=== PATIENT | female | born 1940 | race Caucasian/White ===

== ENCOUNTER 2017-08-04 22:47 | Inpatient (IN) | payer OTHER ==
[~2017-08-04] VITALS: Ht 157.5 cm; Wt 58.8 kg
--- NOTE | ~2017-08-04 | 2DMMODE ---
[facility] [address] [place] [address] 2 D/M-MODE ECHOCARDIOGRAM Name: FABIEN VENEGAS Room #: 218-P [facility] IN ..#: [id number] Admission: 08/05/17 Attend Phys: Farrukh Brady, Discharge: Date of : 42 Date of Service: 08/05/17 1157 Report #: [id number] THIS REPORT FOR: //name// APPROVED REPORT Study performed: 08/05/2017 08:34:30 EXAM: Comprehensive 2D, Doppler, and color-flow Echocardiogram Patient Location: Bedside Room #: 218 Status: routine BSA: 1.53 HR: 88 bpm BP: 148/97 mmHg Other Information Study Quality: Adequate Indications COPD Dyspnea 2D Dimensions RVDd: 37.59 mm LVEF(%): 53.58 (>50%) IVSd: 10.23 (7-11mm) LVOT Diam: 20.59 (18-24mm) LVDd: 42.63 mm PWd: 10.92 (7-11mm) Ascending Ao: 30.75 (22-36mm) LVDs: 30.95 (25-40mm) Aortic Root: 31.16 mm IVC: 23.00 mm Shi's LVEF: 53.58 % Volumes Left Atrial Volume (Systole) Single Plane 4CH: 42.76 mL Single Plane 2CH: 25.39 mL LA ESV Index: 23.00 mL/m2 Aortic Valve AoV Peak Bao.: 1.40 m/s AO Peak Gr.: 7.87 mmHg LVOT Max P.61 mmHg LVOT Max V: 1.18 m/s DIVINA Vmax: 2.81 cm2 Mitral Valve E/A Ratio: 0.7 MV Decel. Time: 183.60 ms [facility] [place] [address] 2 D/M-MODE ECHOCARDIOGRAM Name: FABIEN VENEGAS Room #: 218-P [facility] IN .R.#: [id number] Admission: 08/05/17 Attend Phys: Farrukh Brady, Discharge: Date of : 42 Date of Service: 08/05/17 1157 Report #: [id number] E Max Bao.: 0.87 m/s MV A Bao.: 1.24 m/s MV PHT: 53.25 ms IVRT: 110.73 ms Pulmonary Valve PV Peak Bao.: 1.34 m/s PV Peak Gr.: 7.18 mmHg Pulmonary Vein P Vein S: 0.60 m/s P Vein A: 0.31 m/s P Vein D: 0.43 m/s P Vein A Dur.: 69.2 msec P Vein S/D Ratio: 1.40 Tricuspid Valve TR Peak Bao.: 3.16 m/s RAP Estimate: 15.00 mmHg TR Peak Gr.: 40.04 mmHg PA Pressure: 55.00 mmHg Left Ventricle The left ventricle is normal size. There is normal LV segmental wall motion. There is normal left ventricular wall thickness. The left ventricular systolic function is normal. The left ventricular ejection fraction is within the normal range. LVEF is 55-60%. Mild diastolic dysfunction is present (impaired relaxation pattern). Right Ventricle The right ventricle is normal size. The right ventricular systolic function is normal. Atria The left atrium size is normal. The right atrium size is normal. Aortic Valve The aortic valve is mildly sclerotic No aortic regurgitation is present. There is no aortic valvular stenosis. Mitral Valve The mitral valve is normal in structure. Trace mitral regurgitation. No evidence of mitral valve stenosis. Tricuspid Valve The tricuspid valve is normal in structure. Trace to mild tricuspid regurgitation. PAP is estimated at 50-55 mmHg. [facility] [address] [place] [address] 2 D/M-MODE ECHOCARDIOGRAM Name: FABIEN VENEGAS Room #: 218-P ADM IN .R.#: [id number] Admission: 08/05/17 Attend Phys: Farrukh Brady, Discharge: Date of : 42 Date of Service: 08/05/17 1157 Report #: [id number] Pulmonic Valve The pulmonary valve is normal in structure. There is no pulmonic valvular regurgitation. Great Vessels The aortic root is normal in size. IVC is dilated in size and collapses <50% with patient currently on BiPap machine. Pericardium There is no pericardial effusion. <Conclusion> The left ventricular systolic function is normal. There is normal LV segmental wall motion. LVEF is 55-60%. Mild diastolic dysfunction The aortic valve is mildly sclerotic. No aortic regurgitation or stenosis The mitral valve is normal in structure. Trace mitral regurgitation. Trace to mild tricuspid regurgitation. Pulmonary artery pressure estimated at 50-55 mmHg. There is no pericardial effusion. <ELECTRONICALLY SIGNED> By: Christo King MD, FACC 08/05/17 1157 1157 1157 Christo King MD, FACC /INF
--- NOTE | ~2017-08-04 | EKG ---
[place] [address] [address] [facility] [place] [address] ELECTROCARDIOGRAM REPORT Name: THEOFABIEN Verduzco Room #: 218-P [facility] IN M.R.#: [id number] Admission: 08/05/17 Attend Phys: Farrukh Brady MD Discharge: Date of : 42 Report #: [id number] THIS REPORT FOR: //name// [facility] ED Test Date: 2017-08-05 Test Time: 01:14:38 Pat Name: FABIEN VENEGAS Department: Room: Gender: F Supervisor [employer]: : 1940 Requested By: Yonatan Liu Order Number: [id number] MD: Christo King Measurements Intervals [place] Rate: 94 P: 70 [place]: 158 QRS: 68 QRSD: 87 T: 49 QT: 317 QTc: 397 Interpretive Statements Sinus rhythm Ventricular premature complex Poor R wave progression Compared to ECG 08/02/2017 09:49:31 Ventricular premature complex(es) now present Electronically Signed On 08-06-2017 10:07:04 CDT by Christo King [email or web address] <ELECTRONICALLY SIGNED> By: Christo King MD, [facility] 08/06/17 1007 0114 0114 Christo King MD, [facility] /EPI
[~2017-08-04 22:47] MED LIST: ALBUTEROL2.5 MG/0.5 IH; AMOXICILLIN 50500 MG PO; ASPIRIN325 PO; AZITHROMYCIN 2250 MG PO; BACTRIM DS TAB1 EACH PO; CVS FISH OIL 11 EAC3; DOXYCYCLINE 10100 MG PO; DUONEB 2.5-0.5 M3 ML; KEFLEX500 MG PO; MEDROLDOSEPACK PO; MUCINEX600 MG; PREDNISONE 10 M10 MG PO; PREDNISONE 5 MG5 M1 PO; PROTONIX40 M1 PO; TRAVATAN Z2.5 ML OPHTHALMIC; ULTRAM 50MG TAB50 MG PO; VENTOLIN HFA 1818 GM INH; VICOPROFEN 2001 EACH PO
[2017-08-04 22:48] VITALS: BP 171/88
[2017-08-05] VITALS (7 sets, daily range): BP systolic 135–169; BP diastolic 72–106
[2017-08-05 01:32] LABS: HEMATOCRIT 31.7 % (37.0-47.0); HEMOGLOBIN 10.9 gm/dL (12.0-15.0); MCH 31.9 pg (26.0-34.0); MCHC 34.4 g/dL (28.0-37.0); MCV 92.8 fL (80.0-100.0); PLATELET COUNT 407 thou/uL (150-400); RBC 3.42 mil/uL (4.20-5.00); RDW 12.8 % (10.5-14.5); WBC 8.2 thou/uL (4.0-11.0)
[2017-08-05 01:40] LABS: ANION GAP < 0 mmol/L (7-16); BUN 9 mg/dL (7-18); CALCIUM 8.9 mg/dL (8.5-10.1); CHLORIDE 91 mmol/L (98-107); CO2 43 mmol/L (21-32); CREATININE 0.4 mg/dL (0.6-1.0); GLUCOSE 122 mg/dL (74-106); SODIUM 128 mmol/L (136-145)
[2017-08-05 01:41] LABS: POTASSIUM 3.8 mmol/L (3.5-5.1)
[2017-08-05 01:57] LABS: TROPONIN-I < 0.04 ng/mL (<0.06)
[2017-08-05 02:22] LABS: BE(vivo) 9.9 mmol/L (-2 to +3); HCO3 39.9 mmol/L (22.0-26.0); sO2 95.4 % (92.0-98.0)
[2017-08-05 02:23] LABS: PCO2 90.6 mmHg (35.0-45.0); pH 7.262 (7.360-7.450)
[2017-08-05 08:29] LABS: BE(vivo) 11.4 mmol/L (-2 to +3); HCO3 40.1 mmol/L (22.0-26.0); PO2 103.3 mmHg (80.0-100.0); sO2 97.1 % (92.0-98.0)
[2017-08-05 08:31] LABS: PCO2 78.1 mmHg (35.0-45.0); pH 7.328 (7.360-7.450)
[2017-08-06 03:36] VITALS: BP 171/95
[2017-08-06 08:21] VITALS: BP 164/88
[2017-08-06 16:57] VITALS: BP 160/90
[2017-08-06 19:14] VITALS: BP 149/85
[2017-08-07 02:57] VITALS: BP 142/70
[2017-08-07 07:01] VITALS: BP 144/71
[2017-08-07 11:17] VITALS: BP 141/79
[2017-08-07 15:01] VITALS: BP 132/87
[2017-08-07 20:04] VITALS: BP 137/72
[2017-08-08 07:35] VITALS: BP 152/82
[2017-08-08 19:46] VITALS: BP 113/64
[2017-08-09 08:08] VITALS: BP 143/63
[2017-08-09 09:39] LABS: CALCIUM 9.2 mg/dL (8.5-10.1); CREATININE 0.6 mg/dL (0.6-1.0); POTASSIUM 4.4 mmol/L (3.5-5.1)
[2017-08-09 20:00] VITALS: BP 122/54
[2017-08-10 07:15] VITALS: BP 130/67
[2017-08-10] MEDS ORDERED: LEVAQUIN 500 M500 M1 PO (08:36)
[2017-08-10] MEDS ORDERED: DALMANE15 MG PO (08:36)
[2017-08-10] MEDS ORDERED: PULMICORT0.5 MG/21 INH (08:36)
[2017-08-10] MEDS ORDERED: PREDNISONE 10 M10 MG PO (08:37)
== END 2017-08-10 13:15 | DRG 189 ==
LOC: ER 22:47 → SICU 08-05 01:10 → 2N 08-05 01:10 → EROBS 08-05 01:10 → 4W 08-05 01:33 → 2N 08-05 04:12 → SICU 08-07 17:56
PROVIDERS: Emergency Medicine; Hospitalist; Nurse Practitioner Acute Care
PROC: 5A09357 Assistance with Respiratory Ventilation, Less than 24 Consecutive Hours, Continuous Positive Airway Pressure (ICD-10-PCS; principal; 2017-08-05)
PROC: 5A09357 Assistance with Respiratory Ventilation, Less than 24 Consecutive Hours, Continuous Positive Airway Pressure (ICD-10-PCS; 2017-08-08)
PROC: 5A09357 Assistance with Respiratory Ventilation, Less than 24 Consecutive Hours, Continuous Positive Airway Pressure (ICD-10-PCS; 2017-08-09)
DX: J96.21 Acute and chronic respiratory failure with hypoxia (principal); J44.1 Chronic obstructive pulmonary disease with (acute) exacerbation; E87.1 Hypo-osmolality and hyponatremia; R26.81 Unsteadiness on feet; J96.22 Acute and chronic respiratory failure with hypercapnia; F41.9 Anxiety disorder, unspecified; I27.20 Pulmonary hypertension, unspecified; K44.9 Diaphragmatic hernia without obstruction or gangrene; Z60.2 Problems related to living alone; R91.1 Solitary pulmonary nodule; Z90.49 Acquired absence of other specified parts of digestive tract; Z88.8 Allergy status to other drugs, medicaments and biological substances; Z87.891 Personal history of nicotine dependence; Z88.2 Allergy status to sulfonamides; Z79.899 Other long term (current) drug therapy; Z90.721 Acquired absence of ovaries, unilateral; Z99.81 Dependence on supplemental oxygen
CPT/HCPCS: 10194; 15002

== ENCOUNTER → 2017-09-01 | Outpatient (CLI) | payer OTHER ==
[~2017-09-01] VITALS: Ht 157.5 cm; Wt 53.8 kg
[~2017-09-01] MED LIST changes: +ALLER-CHLOR4 MG; +DALMANE15 MG PO; +LEVAQUIN 500 M500 M1 PO; +PULMICORT0.5 MG/21 INH; +VENTOLIN HFA 1818 GM
[2017-09-01 13:00] VITALS: BP 100/52
== END ==
LOC: SEN 08:13
DX: J44.1 Chronic obstructive pulmonary disease with (acute) exacerbation (principal); I27.20 Pulmonary hypertension, unspecified; Z87.891 Personal history of nicotine dependence

== ENCOUNTER → 2017-12-11 | Outpatient (CLI) | payer OTHER ==
[~2017-12-11] MED LIST changes: +ALLER-CHLOR4 MG PO; +CLEOCIN HCL150 MG PO; +DOXYCYCLINE 10100 M1 PO; +LASIX 20 MG TAB20 MG PO; +LASIX 40 MG TAB40 M1 PO; +PANTOPRAZOLE SO40 M1 PO; +PREDNISONE 20 M20 MG PO; +VITAMIN D1000 UNI1 PO; +XANAX 0.5 MG0.5 M1 PO
[2017-12-11 13:22] VITALS: BP 110/58
== END ==
LOC: SEN 09:03
DX: Z09 Encounter for follow-up examination after completed treatment for conditions other than malignant neoplasm (principal); J44.9 Chronic obstructive pulmonary disease, unspecified; R60.0 Localized edema

== ENCOUNTER 2017-12-15 16:50 | Emergency (ER) | payer OTHER ==
[~2017-12-15] VITALS: Ht 154.9 cm; Wt 56.7 kg
[~2017-12-15 16:50] MED LIST changes: -ALLER-CHLOR4 MG PO; -CLEOCIN HCL150 MG PO; -LASIX 40 MG TAB40 M1 PO; -PANTOPRAZOLE SO40 M1 PO; -VITAMIN D1000 UNI1 PO; -XANAX 0.5 MG0.5 M1 PO
[2017-12-15] MEDS ORDERED: VITAMIN D1000 UNI1 PO (17:08)
[2017-12-15] MEDS ORDERED: ALLER-CHLOR4 MG PO (17:11)
[2017-12-15 17:42] LABS: HEMATOCRIT 29.4 % (37.0-47.0); HEMOGLOBIN 9.8 gm/dL (12.0-15.0); MCH 30.1 pg (26.0-34.0); MCHC 33.4 g/dL (28.0-37.0); MCV 90.2 fL (80.0-100.0); PLATELET COUNT 329 thou/uL (150-400); RBC 3.26 mil/uL (4.20-5.00); RDW 14.1 % (10.5-14.5); WBC 8.7 thou/uL (4.0-11.0)
[2017-12-15 17:49] LABS: ANION GAP < 0 mmol/L (7-16); BUN 10 mg/dL (7-18); CALCIUM 9.2 mg/dL (8.5-10.1); CHLORIDE 92 mmol/L (98-107); CO2 43 mmol/L (21-32); CREATININE 0.4 mg/dL (0.6-1.0); GLUCOSE 85 mg/dL (74-106); POTASSIUM 4.3 mmol/L (3.5-5.1); SODIUM 130 mmol/L (136-145)
[2017-12-15 17:56] LABS: ALBUMIN 2.7 g/dL (3.4-5.0); SGOT 29 U/L (15-37); SGPT 41 U/L (30-65); TOTAL BILIRUBIN 0.3 mg/dL (<0.1-1.0); TOTAL PROTEIN 6.4 g/dL (6.4-8.2)
[2017-12-15 18:09] LABS: ABSOLUTE NEUTROPHILS 7.2 thou/uL (1.4-8.2)
[2017-12-15] MEDS ORDERED: CLEOCIN HCL150 MG PO (18:09)
[2017-12-15 20:11] VITALS: BP 115/50
== END 2017-12-16 04:45 | disposition home or self-care (01) ==
LOC: ER 16:50
PROVIDERS: Emergency Medicine
DX: L03.116 Cellulitis of left lower limb (principal); J44.9 Chronic obstructive pulmonary disease, unspecified; I10 Essential (primary) hypertension; Z87.891 Personal history of nicotine dependence; Z88.1 Allergy status to other antibiotic agents; Z88.2 Allergy status to sulfonamides; Z90.49 Acquired absence of other specified parts of digestive tract; Z90.721 Acquired absence of ovaries, unilateral

== ENCOUNTER 2017-12-20 09:04 | Inpatient (IN) | payer OTHER ==
--- NOTE | ~2017-12-20 | HC ---
[facility] [place] [address] [place] [address] CONSULTATION Name: FABIEN VENEGAS Room #: 459-P [facility] IN M.R.#: [id number] Admission: 12/20/17 Attend Phys: Glendy Painter MD Discharge: Date of : 42 Report #: [id number] THIS REPORT FOR: //name// [facility]: [facility] DATE OF SERVICE: 12/20/2017 HISTORY OF PRESENT ILLNESS: A 77-year-old white woman [facility] with failure to improve of skin lesions on lower extremities despite treatment with doxycycline and recent clindamycin. The patient is advised admission. No systemic symptoms. PAST MEDICAL HISTORY: COPD requiring supplemental oxygen. History of hyponatremia. Fluid overload. Stasis dermatitis, cellulitis legs. DRUG ALLERGIES: CEPHALEXIN, SULFA. MEDICATIONS: The patient is currently on treatment with furosemide 20 mg p.o. daily, guaifenesin 600 p.o. b.i.d., Atrovent and albuterol inhalation treatment, enoxaparin 40 mg subQ daily, meropenem 500 IV every 8 hours, p.r.n. acetaminophen, zolpidem tartrate, ondansetron. SOCIAL HISTORY: See H and P, old records. FAMILY HISTORY: See H and P, old records. REVIEW OF SYSTEMS: Red lesions legs failed to improve on an outpatient basis. COPD requiring inhalation treatments and steroids in the past on supplemental oxygen. PHYSICAL EXAMINATION: GENERAL: Chronically ill-appearing woman. VITAL SIGNS: Temperature 98.9, pulse 86, respirations 18, BP 136/61. HEENMT: Upper and lower plates. NECK: Supple. LUNGS: Decreased breath sounds. HEART: S1, S2. No gallop or murmur. ABDOMEN: Soft, no masses or megaly. EXTREMITIES: Reveal erythematous plaques on both legs, pretibial area slightly tender on palpation. NEUROLOGIC: Grossly within normal limits. LABORATORY DATA: Sodium 130, potassium 4.4, CO2 44, BUN 7, creatinine 0.4, glucose 119, albumin 2.7 g/dL. WBC 6400, hemoglobin 10.3 g/dL, platelets [address] [address] CONSULTATION Name: FABIEN VENEGAS Room #: 459-P [facility] IN [facility].#: [id number] Admission: 12/20/17 Attend Phys: Glendy Painter MD Discharge: Date of : 42 Report #: [id number]. RADIOLOGY EVALUATION: Chest x-ray done on 12/04/2017 revealed bilateral pleural effusion, bibasilar atelectasis, COPD changes. ASSESSMENT: 1. Cellulitis, lower extremities, superimposed on stasis dermatitis. 2. Pretibial edema. 3. Malnutrition. 4. Severe chronic obstructive pulmonary disease. 5. Anemia of chronic disease. SUGGESTIONS: Recommend intravenous meropenem 500 IV every 8 hours and possibly topical steroids to skin lesions on legs. Dr. Painter, thank you for requesting my suggestions. <ELECTRONICALLY SIGNED> By: Naseem Perez MD 12/22/17 1226 1327 0225 Naseem Perez MD /nt
[~2017-12-20 09:04] MED LIST changes: +ALLER-CHLOR4 MG PO; +CLEOCIN HCL150 MG PO; +VITAMIN D1000 UNI1 PO
[2017-12-20 11:07] VITALS: BP 140/68
[2017-12-20] MEDS ORDERED: LASIX 20 MG TAB20 MG PO (11:33)
[2017-12-20 12:50] VITALS: BP 126/63
[2017-12-20 13:12] LABS: HEMATOCRIT 31.5 % (37.0-47.0); HEMOGLOBIN 10.3 gm/dL (12.0-15.0); MCH 29.3 pg (26.0-34.0); MCHC 32.8 g/dL (28.0-37.0); MCV 89.4 fL (80.0-100.0); RBC 3.52 mil/uL (4.20-5.00); RDW 14.2 % (10.5-14.5); WBC 6.4 thou/uL (4.0-11.0)
[2017-12-20 13:22] LABS: ANION GAP < 0 mmol/L (7-16); BUN 7 mg/dL (7-18); CHLORIDE 90 mmol/L (98-107); CO2 44 mmol/L (21-32); CREATININE 0.4 mg/dL (0.6-1.0); GLUCOSE 119 mg/dL (74-106); POTASSIUM 4.4 mmol/L (3.5-5.1); SODIUM 130 mmol/L (136-145)
[2017-12-20 13:28] LABS: ALBUMIN 2.7 g/dL (3.4-5.0); SGOT 21 U/L (15-37); SGPT 33 U/L (30-65); TOTAL BILIRUBIN 0.3 mg/dL (<0.1-1.0); TOTAL PROTEIN 6.4 g/dL (6.4-8.2)
[2017-12-21 01:50] LABS: URINE BILIRUBIN NEGATIVE (Negative); URINE BLOOD TRACE (Negative); URINE CLARITY CLEAR; URINE COLOR YELLOW; URINE GLUCOSE-RANDOM* NEGATIVE (Negative); URINE KETONES NEGATIVE (Negative); URINE LEUKOCYTES NEGATIVE (Negative); URINE NITRITE NEGATIVE (Negative); URINE PROTEIN (DIPSTICK) NEGATIVE (Negative); URINE SPECIFIC GRAVITY <= 1.005 (1.005-1.035); URINE UROBILINOGEN 0.2 E.U./dl (0.2-1.0)
[2017-12-21 04:16] LABS: HEMATOCRIT 28.2 % (37.0-47.0); HEMOGLOBIN 9.4 gm/dL (12.0-15.0); MCHC 33.3 g/dL (28.0-37.0); MCV 90.1 fL (80.0-100.0); PLATELET COUNT 415 thou/uL (150-400); RBC 3.12 mil/uL (4.20-5.00); RDW 14.5 % (10.5-14.5); WBC 5.3 thou/uL (4.0-11.0)
[2017-12-21 04:29] LABS: ANION GAP < 0 mmol/L (7-16); BUN 6 mg/dL (7-18); CALCIUM 8.6 mg/dL (8.5-10.1); CHLORIDE 94 mmol/L (98-107); CO2 40 mmol/L (21-32); CREATININE 0.6 mg/dL (0.6-1.0); GLUCOSE 194 mg/dL (74-106); POTASSIUM 4.2 mmol/L (3.5-5.1); SODIUM 133 mmol/L (136-145)
[2017-12-21 04:56] LABS: ABSOLUTE NEUTROPHILS 4.2 thou/uL (1.4-8.2)
[2017-12-21 08:00] VITALS: BP 116/51
[2017-12-21 20:11] VITALS: BP 120/63
[2017-12-22 07:28] VITALS: BP 124/68
[2017-12-22 19:32] VITALS: BP 121/76
[2017-12-23 07:54] VITALS: BP 115/71
[2017-12-23 19:42] VITALS: BP 110/44
[2017-12-24 08:01] VITALS: BP 122/63
[2017-12-24 12:29] LABS: BE(vivo) 14.2 mmol/L (-2 to +3); HCO3 42.1 mmol/L (22.0-26.0); PCO2 74.8 mmHg (35.0-45.0); PO2 81.2 mmHg (80.0-100.0); pH 7.368 (7.360-7.450); sO2 95.1 % (92.0-98.0)
[2017-12-24 19:15] VITALS: BP 128/45
[2017-12-25 06:16] VITALS: BP 126/61
[2017-12-25 08:43] VITALS: BP 125/65
[2017-12-25 19:09] VITALS: BP 117/65
[2017-12-26 07:40] VITALS: BP 113/69
[2017-12-26 16:25] VITALS: BP 115/68
[2017-12-26 19:26] VITALS: BP 106/54
[2017-12-27 08:07] VITALS: BP 110/60
[2017-12-27] MEDS ORDERED: XANAX 0.5 MG0.5 M1 PO (08:32)
[2017-12-27] MEDS ORDERED: LASIX 40 MG TAB40 M1 PO (08:33)
[2017-12-27] MEDS ORDERED: PANTOPRAZOLE SO40 M1 PO (08:35)
[2017-12-27] MEDS ORDERED: DOXYCYCLINE 10100 MG PO (08:36)
[2017-12-27] MEDS ORDERED: PREDNISONE 10 M10 MG PO (08:39)
== END 2017-12-27 18:08 | DRG 602 ==
LOC: SEN 09:04 → 4W 12:04 → SEN 13:41 → SICU 12-26 15:45
PROVIDERS: Hospitalist; Internal Medicine
PROC: 5A09357 Assistance with Respiratory Ventilation, Less than 24 Consecutive Hours, Continuous Positive Airway Pressure (ICD-10-PCS; principal; 2017-12-25)
PROC: 5A09357 Assistance with Respiratory Ventilation, Less than 24 Consecutive Hours, Continuous Positive Airway Pressure (ICD-10-PCS; 2017-12-26)
PROC: 5A09357 Assistance with Respiratory Ventilation, Less than 24 Consecutive Hours, Continuous Positive Airway Pressure (ICD-10-PCS; 2017-12-27)
DX: L03.116 Cellulitis of left lower limb (principal); J96.21 Acute and chronic respiratory failure with hypoxia; E46 Unspecified protein-calorie malnutrition; I50.30 Unspecified diastolic (congestive) heart failure; E87.3 Alkalosis; J44.1 Chronic obstructive pulmonary disease with (acute) exacerbation; L03.115 Cellulitis of right lower limb; I87.2 Venous insufficiency (chronic) (peripheral); D63.8 Anemia in other chronic diseases classified elsewhere; I27.20 Pulmonary hypertension, unspecified; I27.81 Cor pulmonale (chronic); R13.10 Dysphagia, unspecified; R91.1 Solitary pulmonary nodule; M41.9 Scoliosis, unspecified; Z60.2 Problems related to living alone; M62.84 Sarcopenia; E55.9 Vitamin D deficiency, unspecified; R21 Rash and other nonspecific skin eruption; Z28.21 Immunization not carried out because of patient refusal; Z88.2 Allergy status to sulfonamides; Z79.899 Other long term (current) drug therapy; Z88.8 Allergy status to other drugs, medicaments and biological substances; Z87.891 Personal history of nicotine dependence; Z90.49 Acquired absence of other specified parts of digestive tract
CPT/HCPCS: 10047; 15002

== ENCOUNTER → 2018-01-31 | Outpatient (CLI) | payer OTHER ==
[~2018-01-31] MED LIST changes: +LASIX 40 MG TAB40 M1 PO; +PANTOPRAZOLE SO40 M1 PO; +XANAX 0.5 MG0.5 M1 PO
== END ==
LOC: SEN 09:01
DX: J44.9 Chronic obstructive pulmonary disease, unspecified (principal); Z87.891 Personal history of nicotine dependence

== ENCOUNTER 2018-09-18 18:41 | Emergency (ER) | payer OTHER ==
[~2018-09-18] VITALS: Ht 152.4 cm; Wt 49.4 kg
[2018-09-18 19:08] LABS: HEMATOCRIT 32.6 % (37.0-47.0); HEMOGLOBIN 10.7 gm/dL (12.0-15.0); MCH 30.2 pg (26.0-34.0); MCHC 32.8 g/dL (28.0-37.0); MCV 92.2 fL (80.0-100.0); PLATELET COUNT 266 thou/uL (150-400); RBC 3.54 mil/uL (4.20-5.00); RDW 13.2 % (10.5-14.5); WBC 5.7 thou/uL (4.0-11.0)
[2018-09-18 19:17] LABS: ANION GAP < 0 mmol/L (7-16); BUN 16 mg/dL (7-18); CHLORIDE 93 mmol/L (98-107); CO2 41 mmol/L (21-32); CREATININE 0.5 mg/dL (0.6-1.0); GLUCOSE 92 mg/dL (74-106); POTASSIUM 4.6 mmol/L (3.5-5.1); SODIUM 133 mmol/L (136-145)
[2018-09-18 19:22] LABS: ALBUMIN 3.7 g/dL (3.4-5.0); LIPASE 113 U/L (73-393); SGOT 20 U/L (15-37); SGPT 19 U/L (30-65); TOTAL BILIRUBIN 0.2 mg/dL (<0.1-1.0); TOTAL PROTEIN 6.7 g/dL (6.4-8.2)
[2018-09-18 19:26] LABS: URINE BILIRUBIN NEGATIVE (Negative); URINE BLOOD NEGATIVE (Negative); URINE CLARITY CLEAR; URINE COLOR YELLOW; URINE GLUCOSE-RANDOM* NEGATIVE (Negative); URINE KETONES NEGATIVE (Negative); URINE LEUKOCYTES-REFLEX NEGATIVE (Negative); URINE NITRITE-REFLEX NEGATIVE (Negative); URINE PROTEIN (DIPSTICK) NEGATIVE (Negative)
[2018-09-18] MEDS ORDERED: PEPCID20 MG PO (19:45)
[2018-09-18] MEDS ORDERED: ONDANSETRON ODT8 MG PO (19:45)
[2018-09-18 19:51] LABS: ABSOLUTE NEUTROPHILS 3.9 thou/uL (1.4-8.2)
[2018-09-18 19:52] LABS: ANISOCYTOSIS 1+
[2018-09-18 21:13] VITALS: BP 129/55
--- NOTE | 2018-09-19 08:01 | EKG ---
[facility] [place] [address] ELECTROCARDIOGRAM REPORT Name: FABIEN VENEGAS [id number] ������������������ Admission: 09/18/18 ������������������ Attend Phys: Discharge: 09/18/18 ������������������ Date of : 42 Report #: [id number] ����������������������������������������������������������������� [id number] THIS REPORT FOR: //name// [facility] ED Test Date: 2018-09-18 Test Time: 19:06:01 Pat Name: FABIEN VENEGAS Department: Room: Gender: F Chief Executive Or Managing Director: derrellmerlinangela : 1940 Requested By: Yonatan Liu Order Number: [id number] MD: Christo King Measurements Intervals [place] Rate: 72 P: 78 AR: 153 QRS: 72 QRSD: 88 T: 63 QT: 366 QTc: 401 Interpretive Statements Sinus rhythm Right atrial abnormality Compared to ECG 12/04/2017 12:03:20 Ventricular premature complex(es) no longer present Electronically Signed On 09-19-2018 8:01:08 CDT by Christo King [email or web address] ��������������������������������������������� <ELECTRONICALLY SIGNED> ���������������������������������������� By: Christo King MD, [facility] ��������������������������������������������� 09/19/18 0801 1906 05 Christo King MD, FACC /EPI
== END 2018-09-18 21:14 | disposition home or self-care (01) ==
LOC: ER 18:41
PROVIDERS: Emergency Medicine
DX: R11.0 Nausea (principal); J44.9 Chronic obstructive pulmonary disease, unspecified; I10 Essential (primary) hypertension; Z99.81 Dependence on supplemental oxygen; Z90.49 Acquired absence of other specified parts of digestive tract; Z90.721 Acquired absence of ovaries, unilateral; Z87.891 Personal history of nicotine dependence; Z88.2 Allergy status to sulfonamides; Z88.8 Allergy status to other drugs, medicaments and biological substances

== ENCOUNTER 2019-01-04 03:43 | Emergency (ER) | payer OTHER ==
[~2019-01-04] VITALS: Ht 157.5 cm; Wt 49.9 kg
[~2019-01-04 03:43] MED LIST changes: +ONDANSETRON ODT8 MG PO; +PEPCID20 MG PO
[2019-01-04] MEDS ORDERED: PROVENTIL HFA6.7 G1 INH (03:57)
[2019-01-04 07:30] VITALS: BP 120/57
== END 2019-01-04 07:30 | disposition home or self-care (01) ==
LOC: ER 03:43
DX: S01.01XA Laceration without foreign body of scalp, initial encounter (principal); S41.012A Laceration without foreign body of left shoulder, initial encounter; J44.9 Chronic obstructive pulmonary disease, unspecified; Z99.81 Dependence on supplemental oxygen; Z90.49 Acquired absence of other specified parts of digestive tract; Z90.721 Acquired absence of ovaries, unilateral; Z88.2 Allergy status to sulfonamides; Z88.1 Allergy status to other antibiotic agents; Z87.891 Personal history of nicotine dependence; W18.39XA Other fall on same level, initial encounter; Y93.89 Activity, other specified; Y92.000 Kitchen of unspecified non-institutional (private) residence as the place of occurrence of the external cause; Y99.8 Other external cause status

== ENCOUNTER 2019-01-23 04:20 | Emergency (ER) | payer OTHER ==
[~2019-01-23] VITALS: Ht 160 cm; Wt 49.9 kg
[~2019-01-23 04:20] MED LIST changes: +PROVENTIL HFA6.7 G1 INH
[2019-01-23] MEDS ORDERED: ZPAK PO (05:58)
[2019-01-23 08:22] VITALS: BP 113/47
== END 2019-01-23 08:25 | disposition home or self-care (01) ==
LOC: ER 04:20
DX: S01.81XA Laceration without foreign body of other part of head, initial encounter (principal); J06.9 Acute upper respiratory infection, unspecified; I27.20 Pulmonary hypertension, unspecified; J44.9 Chronic obstructive pulmonary disease, unspecified; Z90.49 Acquired absence of other specified parts of digestive tract; Z90.721 Acquired absence of ovaries, unilateral; Z87.891 Personal history of nicotine dependence; Z88.1 Allergy status to other antibiotic agents; Z88.2 Allergy status to sulfonamides; W06.XXXA Fall from bed, initial encounter; Y93.89 Activity, other specified; Y92.89 Other specified places as the place of occurrence of the external cause; Y99.8 Other external cause status

== ENCOUNTER 2019-01-25 11:23 | Inpatient (IN) | payer OTHER ==
[~2019-01-25] VITALS: Ht 160 cm; Wt 48.1 kg
[~2019-01-25 11:23] MED LIST changes: +ZPAK PO
[2019-01-25 13:17] VITALS: BP 106/52
[2019-01-25] MEDS ORDERED: FUROSEMIDE 20 M20 MG PO (13:51)
[2019-01-25 15:13] VITALS: BP 104/49
[2019-01-25 17:03] LABS: BE(vivo) 22.6 mmol/L (-2 to +3); HCO3 50.5 mmol/L (22.0-26.0); PO2 71.2 mmHg (80.0-100.0)
[2019-01-25 17:04] LABS: PCO2 76.1 mmHg (35.0-45.0)
--- NOTE | 2019-01-25 17:10 | NUR ---
PT ARRIVED TO UNIT VIA EMS AT APPROX 1300. PT ALERT AND ORIENTED, ON 4L 02 NC, NAD NOTED AT TIME OF ARRIVAL. ADMITTING NOTIFIED, NO RECORDS SENT FROM [facility]. CONTACTED [facility], COPIES FAXED AND RECIEVED. DR NOTIFIED. WILL IMPLEMENT ORDERS.
[2019-01-25 18:18] LABS: HEMATOCRIT 32.9 % (37.0-47.0); HEMOGLOBIN 10.5 gm/dL (12.0-15.0); MCH 30.2 pg (26.0-34.0); MCHC 32.1 g/dL (28.0-37.0); MCV 94.1 fL (80.0-100.0); PLATELET COUNT 237 thou/uL (150-400); RBC 3.49 mil/uL (4.20-5.00); WBC 5.1 thou/uL (4.0-11.0)
[2019-01-25 18:40] LABS: ALBUMIN 3.4 g/dL (3.4-5.0); BUN 21 mg/dL (7-18); CHLORIDE 88 mmol/L (98-107); CREATININE 0.7 mg/dL (0.6-1.0); GLUCOSE 104 mg/dL (74-106); POTASSIUM 3.9 mmol/L (3.5-5.1); SGOT 28 U/L (15-37); SGPT 20 U/L (30-65); SODIUM 131 mmol/L (136-145); TOTAL BILIRUBIN 0.3 mg/dL (<0.1-1.0); TOTAL PROTEIN 6.5 g/dL (6.4-8.2); TROPONIN-I <0.06 ng/mL (<0.06)
[2019-01-25 18:55] LABS: ABSOLUTE NEUTROPHILS 3.7 thou/uL (1.4-8.2)
[2019-01-25 18:59] LABS: CO2 > 45 mmol/L (21-32)
[2019-01-26 00:03] VITALS: BP 130/56
[2019-01-26 03:36] VITALS: BP 119/60
--- NOTE | 2019-01-26 06:52 | NUR ---
PATIENT ALERT AND ORIENTED X4. HAS COARSE BS. UP TO BSC WITH SBA. TELE ON, RUNS SINUS RHYTHM. HAS LAC ABOVE R EYE WITH SUTURES INTACT. HAS BRUISES ON FACE AND BODY FROM FALLS. SLEPT OFF AND ON DURING NIGHT. DENIES PAIN.
[2019-01-26 07:18] VITALS: BP 160/81
--- NOTE | 2019-01-26 11:06 | EKG ---
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: BERONICA : 1940 Requested By: Zack Antonio Order Number: [id number] MD: Haroon Simon Measurements Intervals [place] Rate: 83 P: 73 [place]: 145 QRS: 66 QRSD: 78 T: 64 QT: 358 QTc: 421 Interpretive Statements Sinus rhythm Biatrial enlargement Probable left ventricular hypertrophy Anterior ST elevation, probably due to LVH Compared to ECG 09/18/2018 19:06:01 Left ventricular hypertrophy now present ST (T wave) deviation now present Electronically Signed On 01-26-2019 11:06:05 SENIOR ACCOUNT EXECUTIVE by Haroon Simon [email or web address] <ELECTRONICALLY SIGNED> By: Haroon Simon MD 01/26/19 1106 4 4 Haroon Simon MD /JOSEF
[2019-01-26 11:21] LABS: URINE BILIRUBIN NEGATIVE (Negative); URINE BLOOD TRACE (Negative); URINE CLARITY CLEAR; URINE COLOR YELLOW; URINE GLUCOSE-RANDOM* NEGATIVE (Negative); URINE KETONES NEGATIVE (Negative); URINE LEUKOCYTES-REFLEX NEGATIVE (Negative); URINE NITRITE-REFLEX NEGATIVE (Negative); URINE PROTEIN (DIPSTICK) NEGATIVE (Negative); URINE UROBILINOGEN 0.2 E.U./dl (0.2-1.0)
[2019-01-26 11:38] VITALS: BP 126/59
--- NOTE | 2019-01-26 13:13 | NUR ---
DR HOUGH ORDERED HOSPICE EVAL. ORDER AND H&P SENT TO HOSPICE HOUSE [phone].
--- NOTE | 2019-01-26 14:59 | NUR ---
PT ASSESSED BY HOSPICE BUT DOES NOT MEET CRITERIA.
[2019-01-26 15:41] VITALS: BP 163/79
[2019-01-26 19:54] VITALS: BP 133/69
--- NOTE | 2019-01-27 02:59 | NUR ---
PT TRANSFERRING TO BEDSIDE COMMODE WITH ASSIST X1 AND IS TOLERATING FAIR. DENIES PAIN. RESTING COMFORTABLY. NO NEEDS VOICED. CALL LIGHT WITHIN REACH. WILL CONTINUE TO PROVIDE FREQUENT OBSERVATION.
[2019-01-27 03:15] VITALS: BP 141/62
[2019-01-27 04:47] LABS: HEMOGLOBIN 11.2 gm/dL (12.0-15.0); MCV 93.7 fL (80.0-100.0); RBC 3.73 mil/uL (4.20-5.00); RDW 13.1 % (10.5-14.5); WBC 4.7 thou/uL (4.0-11.0)
[2019-01-27 05:11] LABS: BUN 13 mg/dL (7-18); CHLORIDE 90 mmol/L (98-107); CREATININE 0.4 mg/dL (0.6-1.0); GLUCOSE 140 mg/dL (74-106); MAGNESIUM 1.8 mg/dL (1.8-2.4); POTASSIUM 4.3 mmol/L (3.5-5.1); SODIUM 133 mmol/L (136-145)
[2019-01-27 05:16] LABS: CO2 > 45 mmol/L (21-32)
[2019-01-27 05:31] LABS: BE(vivo) 17.5 mmol/L (-2 to +3); HCO3 47.3 mmol/L (22.0-26.0); PO2 105.6 mmHg (80.0-100.0); pH 7.341 (7.360-7.450); sO2 97.2 % (92.0-98.0)
[2019-01-27 05:33] LABS: PCO2 89.4 mmHg (35.0-45.0)
[2019-01-27 11:54] VITALS: BP 146/81
[2019-01-27 15:37] VITALS: BP 152/90
[2019-01-27 15:52] VITALS: BP 108/49
[2019-01-27 19:30] VITALS: BP 137/70
[2019-01-28 04:30] VITALS: BP 136/58
[2019-01-28 04:59] LABS: HEMATOCRIT 34.3 % (37.0-47.0); HEMOGLOBIN 11.1 gm/dL (12.0-15.0); MCH 30.5 pg (26.0-34.0); MCHC 32.3 g/dL (28.0-37.0); MCV 94.4 fL (80.0-100.0); RBC 3.63 mil/uL (4.20-5.00); RDW 13.4 % (10.5-14.5); WBC 5.1 thou/uL (4.0-11.0)
[2019-01-28 05:12] LABS: BUN 21 mg/dL (7-18); CALCIUM 8.7 mg/dL (8.5-10.1); CHLORIDE 95 mmol/L (98-107); CREATININE 0.3 mg/dL (0.6-1.0); GLUCOSE 149 mg/dL (74-106); POTASSIUM 4.3 mmol/L (3.5-5.1); SODIUM 137 mmol/L (136-145)
[2019-01-28 05:15] LABS: CO2 > 45 mmol/L (21-32)
--- NOTE | 2019-01-28 06:54 | NUR ---
Patient reported frustration with her current health issues and hospitalization. She is is nearing discharge. Nursing will continue to monitor. Patient slept through most of hte night.
[2019-01-28 07:50] VITALS: BP 136/73
[2019-01-28 09:10] LABS: BE(vivo) 15.4 mmol/L (-2 to +3); HCO3 47.6 mmol/L (22.0-26.0); PO2 96.3 mmHg (80.0-100.0); sO2 95.2 % (92.0-98.0)
[2019-01-28 09:11] LABS: PCO2 117.1 mmHg (35.0-45.0); pH 7.227 (7.360-7.450)
[2019-01-28 12:05] VITALS: BP 117/62
--- NOTE | 2019-01-28 12:41 | NUR ---
INITIAL ASSESSMENT: Received consult for hospice evaluation. SHERIDAN reviewed chart and spoke with nursing and attending physician. Pt was admitted from home due to exacerbation of COPD. Pt currently minimally responsive and CO2 is 117. Pt was evaluated by Hospice over the weekend and pt was not appropriate for admission to the hospice house. SHERIDAN spoke with intake at [facility]. The referral was cancelled, as pt had stated to the hospice chaplain that she wasn t ready for hospice. SHERIDAN discussed with attending physician who requests [facility] to re-evaluate pt. SHERIDAN contacted clinical liaison. SHERIDAN left voice message for both of pt s daughters, Estela and Sridevi, to provide update. Awaiting call back at this time. SHERIDAN is following to assist as needed with discharge planning.
--- NOTE | 2019-01-28 13:46 | NUR ---
DISCHARGE PLANNING. HOSPICE TO CONSULT WITH PATIENT AND FAMILY. PER DAUGHTER IAN, PATIENT IS ON SERVICES WITH [facility] AND [facility] HAS COPY OF PATIENTS DPOA. CALL PLACED TO [facility]. [facility] STATES THEY DO NOT SHOW PATIENT ON SERVICES WITH THEM. CALL PLACED TO DAUGHTER IAN. IAN STATES THE NURSE PRACTITIONER WHO VISITS WITH PATIENT IS DONNA. [facility] DONNA ASSISTED PATIENT WITH DPOA PAPER WORK. IAN TO LOOK INTO AND PROVIDE JOSE A CONTACT INFORMATION. UNIT SW NOTIFIED.
[2019-01-28 16:01] VITALS: BP 156/79
--- NOTE | 2019-01-28 18:30 | NUR ---
pt was not response in this morning, abnormal ABG results, PH 7.227,PCO2 117.1, RN has called Dr Vaca and dr borges, new order received, PT is on hospice eveuation , pt's o2 has reducing 4L/MIN/NC from 7 l/min/nc, pt starts resopnse and talking , pt's o2sat keeps 88-92% with o2 , pt sits at bedside for meals, pt has SOB with activities, RN has called to change medication for pt's anxiety .
[2019-01-28 20:10] VITALS: BP 141/65
[2019-01-28 23:14] VITALS: BP 138/64
[2019-01-29 03:55] VITALS: BP 139/76
--- NOTE | 2019-01-29 06:29 | NUR ---
PAITENT IS ALERT AND ORIENTED. PATIENT IS CALM NOT ANXIOUS THIS SHIFT. PATIENT IS ON 4LNC WHICH IS HER BASELINE. PATIENTS CO2 IS IMPROVING THIS SHIFT. PATIENT IS NSR ON TELE. PATIENT IS INCONTIENT. PATIENT IS PENDING A HOSPICE EVAL TODAY. PATIENT DENIES PAIN. PATIENT IS RESTING IN BED. WCM.
[2019-01-29 08:08] VITALS: BP 150/71
[2019-01-29 12:22] VITALS: BP 137/60
--- NOTE | 2019-01-29 14:28 | NUR ---
SHERIDAN received call from SHERIDAN Bui with [facility], who states that [facility] came to see pt earlier today. Per Ramya, pt is eligible for increased hours of care provided be her [place]-Medicaid. However, an assessment will need to be done when pt returns home. SHERIDAN met with pt, dtrs and VENKATA financial systems director at bedside. Pt does not meet admission criteria for the hospice house. Pt is eligible for hospice. Pt and family discussing plan for discharge. SHERIDAN is following to assist as needed with discharge planning.
[2019-01-29 15:53] VITALS: BP 138/80
--- NOTE | 2019-01-29 16:12 | NUR ---
MS THEO WAS ADMITTED FOR COPD EXACERBATION, HAD A FALL AT HOME WITH LACERATION WITH STITCHES ON FORHEAD. PT GETS ANXIOUS WHEN AMBULATING DUE TO SOA AND DROP IN O2 LEVEL. PT HR IS NORMAL SINUS RHYTHM, LIVES AT HOME ALONE WITH PALLATIVE CARE. JG WAS CONSULTED AND PT HAD MULTUPLE BREATHING TREATMENTS THROUGHOUT THE DAY. PT TAKES PILLS WITH APPLE SAUSE. VISITED BY [facility], PT EXPRESSED LIKING THE IDEA OF MORE VISITS IN THE HOME BUT FRUSTRATED THAT IF SHE RECEIVED HOSPICE CARE SHE HAS TO DISCONTINUE PALLATIVE CARE. LEFT HAND SALINE LOCK, FLUSHED WELL, GIVE ANTIBIOTOCS IN THE AM. LUNGS SOUND DIMINISHED IN MORNING, AFTER TWO BREATHING TREATMENTS LUNG SOUNDS WITH WHEEZING AND PRODUCTIVE COUGH. DID NOT OBSERVE SPUTUM
--- NOTE | 2019-01-29 17:15 | NUR ---
PT is continuing iv abx ,o2 4L/MIN/NC and breathing treatment,pt has sob with activities, but pt's o2 sat keeps >88%, pt's forehead sutures are CDI, pt denies pain and n/v , RN has update about pt's information to the pt's daughter, PT has refused Hospice service for her D/C plan, pt's vs are stable at this time.
[2019-01-29 19:11] VITALS: BP 151/77
--- NOTE | 2019-01-30 03:31 | NUR ---
PATIENT IS ALERT AND ORIENTED. PATIENT GETS ANXIOUS AT TIMES WHICH EFFECTS BREATHING BUT PATIENT IS ABLE TO REGAIN CONTROL WITH COACHING. PATIENT IS ON 4LNC WHICH IS BASELINE. PATIENT IS UP WITH ONE TO BSC PATIENT IS SOB WITH ACTIVITY. PATIENT IS NSR ON TELE. PATIENT EXPRESSED SHE WANTS HOSPICE BUT INSURANCE WOULD NOT COVER IT UNLESS SHE WAS PLACED IN INTERMEDIATE. SO POSSIBLE PENDING PLACEMENT WITH CM. OR DISCHARGE HOME WITH HOSPICE. WCM. PATIENT IS RESTING IN BED.
[2019-01-30 04:06] VITALS: BP 153/80
[2019-01-30 07:45] VITALS: BP 155/87
[2019-01-30 12:27] VITALS: BP 151/79
--- NOTE | 2019-01-30 14:08 | NUR ---
SHERIDAN reviewed chart and spoke with nursing and attending physician. Pt remains stable for discharge with hospice. SHERIDAN discussed case with [facility] liaison who states they are unable to accept pt. [facility] is concerned that pt will not have a dc plan at the end of hospice respite stay. Pt has [place] Medicaid and [facility] would not be able to bill pt's [place] Medicaid. SHERIDAN met with pt at bedside to provide update. Pt verbalized understanding. SHERIDAN discussed alternate options for residential placement. Pt requests referral to be sent to [facility]. Pt used to work at [facility]. SHERIDAN explained that should pt not be able to return home or go to the hospice house after respite stay, she would need to stay at [facility] for local intermodal truck driver care. Pt agreeable. discharge planner to fax referral to [facility]. SHERIDAN spoke with Sherri in intake at Hospice to provide update. Hospice is able to admit pt at the facility where is goes. Awaiting input from [facility] at this time. SHERIDAN updated pt's nurse and attending physician. SHERIDAN is following to assist as needed with discharge planning.
[2019-01-30 15:28] VITALS: BP 131/65
--- NOTE | 2019-01-30 17:01 | NUR ---
PT ALERT AND ORIENTED TIMES FOUR. PT VERY TEARFUL THROUGH OUT THE SHIFT. VSS, SR OM TELE, 98%4L, PT DENIES PAIN/SOA. PT TOLERATES MEDS AND MEALS. PT HAS BEEM UP TO BSC WITH ASSIST OF ONE. PLANS TO [facility]. WILL CONTINUE TO MONITOR.
[2019-01-30 20:08] VITALS: BP 127/61
[2019-01-31 03:42] VITALS: BP 159/82
--- NOTE | 2019-01-31 04:38 | NUR ---
Patient advised she could not fall asleep. Natalinet was given a heated blanket and administered chlorpheniramine. Patient was able to sleep for several hours after.
[2019-01-31 07:54] VITALS: BP 176/84
[2019-01-31] MEDS ORDERED: CHLORPHENIRAMINE4 M4 PO (08:05)
[2019-01-31] MEDS ORDERED: AUGMENTIN 875-1 EACH PO (08:05)
[2019-01-31 11:32] VITALS: BP 149/79
--- NOTE | 2019-01-31 13:09 | NUR ---
ASSUMED CARE OF PT AT APPROX 0700. PT IS LAERT ANDORIENTED X4, MONITORED ON TELE, AND ABLE TO MAINTAIN 02 SAT >90 ON 02 NC. PT WILL DESAT AT TIMES WITH ACTIVITY BUT RECOVERS AFTER REST. DENIES PAIN. ASSESSMENT CHARTED. PT TO BE DISCHARGED TO SNF TODAY. TRANSPORTATION TO BE HERE APPROX 1330. WILL CONT TO MONITOR.
--- NOTE | 2019-01-31 13:39 | NUR ---
DISCHARGE NOTE: SW reviewed chart and spoke with nursing and attending physician. Pt is medically stable for discharge to [facility] today with Hospice. Discharge orders finalized. systems requirements planner faxed to [facility] and Hospice. Transportation changed to 1300 per [facility] request. Hospice to admit pt on service around 1400. Pt is aware and agreeable. SHERIDAN spoke with pt's dtr, Estela, via phone to provide update. Estela is aware and agreeable with discharge plan. Chart copy requested. Nursing to call report. No additional SW needs identified at this time, but is available to assist should needs arise.
== END 2019-01-31 13:36 | DRG 189 ==
LOC: 3W 11:23
PROVIDERS: Internal Medicine; Internal Medicine Pulmonary Disease; ADMIT Family Medicine
DX: J96.22 Acute and chronic respiratory failure with hypercapnia (principal); E87.1 Hypo-osmolality and hyponatremia; E87.3 Alkalosis; Z68.1 Body mass index [BMI] 19.9 or less, adult; J96.21 Acute and chronic respiratory failure with hypoxia; D64.9 Anemia, unspecified; I27.20 Pulmonary hypertension, unspecified; J43.9 Emphysema, unspecified; I27.81 Cor pulmonale (chronic); E66.9 Obesity, unspecified; Z66 Do not resuscitate; Z99.81 Dependence on supplemental oxygen; Z90.721 Acquired absence of ovaries, unilateral; Z88.2 Allergy status to sulfonamides; Z88.8 Allergy status to other drugs, medicaments and biological substances; Z90.49 Acquired absence of other specified parts of digestive tract; Z87.891 Personal history of nicotine dependence
CPT/HCPCS: 10779; 10879

== ENCOUNTER 2019-10-14 17:30 | Emergency (ER) | payer OTHER ==
[~2019-10-14] VITALS: Ht 152.4 cm; Wt 45.4 kg
[~2019-10-14 17:30] MED LIST changes: +AUGMENTIN 875-1 EACH PO; +CHLORPHENIRAMINE4 M4 PO; +FUROSEMIDE 20 M20 MG PO
[2019-10-14 18:06] LABS: BUN 11 mg/dL (7-18); CALCIUM 8.6 mg/dL (8.5-10.1); CHLORIDE 90 mmol/L (98-107); CREATININE 0.4 mg/dL (0.6-1.0); GLUCOSE 88 mg/dL (74-106); POTASSIUM 4.6 mmol/L (3.5-5.1); SODIUM 132 mmol/L (136-145)
[2019-10-14 18:17] LABS: ALBUMIN 3.6 g/dL (3.4-5.0); SGOT 21 U/L (15-37); SGPT 18 U/L (30-65); TOTAL BILIRUBIN 0.3 mg/dL (0.2-1.0); TOTAL PROTEIN 6.5 g/dL (6.4-8.2); TROPONIN-I <0.06 ng/mL (<0.06)
[2019-10-14 18:19] LABS: HEMATOCRIT 31.6 % (37.0-47.0); HEMOGLOBIN 10.2 gm/dL (12.0-15.0); MCHC 32.4 g/dL (28.0-37.0); MCV 92.7 fL (80.0-100.0); PLATELET COUNT 230 thou/uL (150-400); RBC 3.41 mil/uL (4.20-5.00); RDW 14.2 % (10.5-14.5); WBC 4.3 thou/uL (4.0-11.0)
[2019-10-14 18:23] LABS: CO2 > 45 mmol/L (21-32)
[2019-10-14 18:52] LABS: ABSOLUTE NEUTROPHILS 2.9 thou/uL (1.4-8.2); PLATELET ESTIMATE NORMAL
[2019-10-14 22:30] VITALS: BP 140/63
--- NOTE | 2019-10-15 07:46 | EKG ---
[facility] [place] [address] ELECTROCARDIOGRAM REPORT Name: FABIEN VENEGAS Room #: [facility]#: [id number] Admission: 10/14/19 Attend Phys: Discharge: 10/14/19 Date of : 42 Report #: [id number] THIS REPORT FOR: cc: Estevan Vaca MD, Neal A. MD Lundgren,Christo Mcdaniel MD [facility] THIS REPORT FOR: //name// [facility] ED Test Date: 2019-10-14 Test Time: 18:13:42 Pat Name: FABIEN VENEGAS Department: Room: Gender: F Modeler: : 1940 Requested By: Patricia Gilliland Order Number: [id number] MD: Christo King Measurements Intervals [place] Rate: 77 P: 65 ID: [id number] QRS: 42 QRSD: 90 T: 44 QT: 362 QTc: 410 Interpretive Statements Sinus rhythm No significant abnormality Compared to ECG 01/26/2019 07:25:26 No significant change was found Electronically Signed On 10-15-2019 7:46:22 CDT by Christo King [email or web address] <ELECTRONICALLY SIGNED> By: Christo King MD, [facility] 10/15/19 0746 1813 181 Christo King MD, [facility] /EPI
== END 2019-10-14 22:30 | disposition home or self-care (01) ==
LOC: ER 17:30
PROVIDERS: Physician Assistant
DX: R06.00 Dyspnea, unspecified (principal); J44.9 Chronic obstructive pulmonary disease, unspecified; Z79.899 Other long term (current) drug therapy; Z88.2 Allergy status to sulfonamides; Z88.8 Allergy status to other drugs, medicaments and biological substances; Z87.891 Personal history of nicotine dependence; Z20.828 Contact with and (suspected) exposure to other viral communicable diseases